=== PATIENT | female | born 1935 | race Caucasian/White ===

== ENCOUNTER 2018-08-20 16:44 | Inpatient (IN) | payer MEDICARE, MEDICAID ==
[~2018-08-20] VITALS: Ht 165.1 cm; Wt 47.9 kg
[2018-08-20] MEDS ORDERED: FELO25ER PO (17:17)
[2018-08-20] MEDS ORDERED: METO50 PO (17:17)
[2018-08-20] MEDS ORDERED: FOSI20TA98 PO (17:17)
[2018-08-20] MEDS ORDERED: APIX2.5T PO (17:17)
[2018-08-20 18:26] LABS: BASOPHILS % (AUTO) 0.6 % (0.0-2.0); EOSINOPHILS % (AUTO) 0.3 % (1.0-6.0); HEMATOCRIT 40.9 % (36-46); HEMOGLOBIN 13.7 g/dL (12.0-16.0); LYMPHOCYTES % (AUTO) 24.9 % (22.0-44.0); MEAN CORPUSCULAR HEMOGLOBIN 29.1 pg (26.0-34.0); MEAN CORPUSCULAR HGB CONC 33.5 G/dL (31.0-37.0); MEAN CORPUSCULAR VOLUME 87 fL (80-100); MONOCYTES # (AUTO) 0.6 K/uL (0.1-1.0); MONOCYTES % (AUTO) 7.6 % (2.0-9.0); NEUTROPHILS # (AUTO) 5.4 K/uL (1.8-7.7); NEUTROPHILS % (AUTO) 66.6 % (40.0-70.0); PLATELET COUNT (AUTO) 269 K/uL (150-450); RED BLOOD CELL COUNT(AUTO) 4.72 MIL/uL (4.00-5.20); RED CELL DISTRIBUTION WIDTH 16.4 % (11.5-14.5)
[2018-08-20 18:37] LABS: ANION GAP 8 mmol/L (8-16); CALCIUM, TOTAL 9.5 mg/dL (8.8-10.5); CARBON DIOXIDE 27 mmol/L (22-29); CHLORIDE 101 mmol/L (98-107); CREATININE 1.12 mg/dL (0.60-1.30); GLOMERULAR FILTR. RATE CALC 46 mL/min (>60); GLUCOSE,RANDOM 191 mg/dL (70-110); SODIUM SERUM 136 mmol/L (136-145); UREA NITROGEN, BLOOD 22 mg/dL (7-18)
[2018-08-20 18:43] LABS: ALANINE AMINOTRANSFERASE 22 U/L (12-78); ALBUMIN 3.9 g/dL (3.4-5.0); ALKALINE PHOSPHATASE 282 U/L (46-116); ASPARTATE AMINOTRANSFERASE 26 U/L (15-37); BILIRUBIN,TOTAL 0.5 mg/dL (0.1-1.0); TOTAL PROTEIN, SERUM 6.9 g/dL (6.4-8.2)
[2018-08-20 22:44] LABS: APPEARANCE,URINE CLOUDY (CLEAR); BILIRUBIN,URINE NEGATIVE (NEGATIVE); GLUCOSE, URINE (UA) NEGATIVE (NEGATIVE); KETONES,URINE NEGATIVE (NEGATIVE); LEUKOCYTE ESTERASE ,URINE SMALL (NEGATIVE); NITRATE,URINE NEGATIVE (NEGATIVE); OCCULT BLOOD,URINE NEGATIVE (NEGATIVE); PH,URINE 5.5 (5.0-8.0); PROTEIN,URINE NEGATIVE (NEGATIVE); UROBILINOGEN,URINE 0.2 mg/dL (<=1.0)
[2018-08-20 22:50] LABS: AMPHET/METH SCREEN,URINE NEGATIVE (NEGATIVE); BARBITURATE SCREEN, URINE NEGATIVE (NEGATIVE); BENZODIAZEPINES SCREEN,URINE NEGATIVE (NEGATIVE); CANNABINOID SCREEN,URINE NEGATIVE (NEGATIVE); COCAINE SCREEN,URINE NEGATIVE (NEGATIVE); METHADONE SCREEN, URINE NEGATIVE (NEGATIVE); OPIATE SCREEN,URINE NEGATIVE (NEGATIVE)
[2018-08-20 22:52] LABS: PHENCYCLIDINE SCREEN,URINE NEGATIVE (NEGATIVE)
[2018-08-20 22:53] LABS: RBC,URINE None Seen /HPF (0-2)
[2018-08-20 22:54] LABS: BACTERIA,URINE Rare /HPF (None Seen); SQUAMOUS EPITHELIAL CELL,UR Moderate /LPF (None Seen)
[2018-08-20] MEDS ORDERED: HALOPERIDOL 5 MG TABLET PO PRN (23:00)
[2018-08-21 01:13] VITALS: BP 183/86
[2018-08-21] MEDS: ZOLPIDEM TARTRATE 10 MG TABLET PO PRN ×2 (01:15→21:11)
[2018-08-21 01:45] VITALS: BP 152/72
[2018-08-21] MEDS ORDERED: PNEUMOCOCCAL VACCINE POLYVALENT 0.5 ML VIAL [PPSV23] IM ONE (03:30)
[2018-08-21 08:18] VITALS: BP 142/83
[2018-08-21 08:59] LABS: HEMOGLOBIN A1C 6.2 % (4.5-6.2)
[2018-08-21] MEDS ORDERED: METOPROLOL TARTRATE 25 MG TABLET PO SCH (09:00)
[2018-08-21 09:21] LABS: CHOL/HDL RATIO 3.7 (3.9-5.7); FREE T4 (FREE THYROXINE) 1.31 ng/dL (0.76-1.46); THYROID STIMULATING HORMONE 0.29 uIU/mL (0.36-3.74)
[2018-08-21] MEDS: METOPROLOL TARTRATE 50 MG TABLET PO SCH (16:11)
[2018-08-21] MEDS: APIXABAN 2.5 MG TABLET PO SCH (16:11)
[2018-08-21] MEDS: RisperiDONE 0.5 MG TABLET PO SCH (16:12)
[2018-08-21 16:13] VITALS: BP 153/84
[2018-08-21] MEDS ORDERED: FELODIPINE 5 MG ER TABLET PO SCH (17:00)
[2018-08-21] MEDS ORDERED: APIXABAN 2.5 MG TABLET PO SCH (17:00)
[2018-08-21] MEDS ORDERED: FOSINOPRIL SODIUM 20 MG TABLET PO SCH (17:00)
[2018-08-22] VITALS (9 sets, daily range): BP systolic 135–192; BP diastolic 69–98
[2018-08-22] MEDS: APIXABAN 2.5 MG TABLET PO SCH ×2 (08:29→16:06)
[2018-08-22] MEDS: FELODIPINE 5 MG ER TABLET PO SCH (08:29)
[2018-08-22] MEDS: RisperiDONE 0.5 MG TABLET PO SCH ×2 (08:30→16:06)
[2018-08-22] MEDS: FOSINOPRIL SODIUM 20 MG TABLET PO SCH (08:30)
[2018-08-22] MEDS: METOPROLOL TARTRATE 50 MG TABLET PO SCH ×2 (08:30→16:06)
[2018-08-22 09:43] LABS: MAGNESIUM 1.8 mg/dL (1.80-2.40); PHOSPHORUS 3.2 mg/dL (2.5-4.9)
[2018-08-22] MEDS: CITALOPRAM HYDROBROMIDE 10 MG TABLET PO SCH (12:55)
[2018-08-22] MEDS: CloNIDine HCL 0.1 MG TABLET PO PRN (19:57)
[2018-08-22] MEDS: ZOLPIDEM TARTRATE 10 MG TABLET PO PRN (20:48)
[2018-08-23 02:24] VITALS: BP 150/87
[2018-08-23 08:00] VITALS: BP 135/79
[2018-08-23] MEDS: CITALOPRAM HYDROBROMIDE 10 MG TABLET PO SCH (09:13)
[2018-08-23] MEDS: RisperiDONE 0.5 MG TABLET PO SCH ×2 (09:13→16:47)
[2018-08-23] MEDS: METOPROLOL TARTRATE 50 MG TABLET PO SCH ×2 (09:14→16:47)
[2018-08-23] MEDS: APIXABAN 2.5 MG TABLET PO SCH ×2 (09:14→16:47)
[2018-08-23] MEDS: FELODIPINE 5 MG ER TABLET PO SCH (09:14)
[2018-08-23] MEDS: FOSINOPRIL SODIUM 20 MG TABLET PO SCH (09:14)
[2018-08-23 16:06] VITALS: BP 120/69
[2018-08-23] MEDS: MIRTAZAPINE 15 MG TABLET PO SCH (20:39)
[2018-08-24] MEDS: CloNIDine HCL 0.1 MG TABLET PO PRN (06:04)
[2018-08-24 06:13] VITALS: BP 198/83
[2018-08-24 07:04] VITALS: BP 181/81
[2018-08-24] MEDS: RisperiDONE 0.5 MG TABLET PO SCH ×2 (08:35→16:47)
[2018-08-24] MEDS: FELODIPINE 5 MG ER TABLET PO SCH ×2 (08:35→16:47)
[2018-08-24] MEDS: APIXABAN 2.5 MG TABLET PO SCH ×2 (08:35→16:47)
[2018-08-24] MEDS: FOSINOPRIL SODIUM 20 MG TABLET PO SCH (08:35)
[2018-08-24] MEDS: METOPROLOL TARTRATE 50 MG TABLET PO SCH ×2 (08:35→16:47)
[2018-08-24] MEDS: CITALOPRAM HYDROBROMIDE 10 MG TABLET PO SCH (08:35)
[2018-08-24 08:36] VITALS: BP 141/61
[2018-08-24] MEDS: MULTIVITAMINS WITH MINERALS, THERAPEUTIC TABLET PO SCH (09:19)
[2018-08-24] MEDS ORDERED: HydrALAZINE HCL 25 MG TABLET PO PRN (13:00)
[2018-08-24 13:06] VITALS: BP 107/66
[2018-08-24 16:28] VITALS: BP 148/68
[2018-08-24 19:00] VITALS: BP 113/61
[2018-08-24] MEDS: MIRTAZAPINE 15 MG TABLET PO SCH (20:35)
[2018-08-25 05:35] VITALS: BP 174/98
[2018-08-25] MEDS: CloNIDine HCL 0.1 MG TABLET PO PRN (05:35)
[2018-08-25 06:35] VITALS: BP 153/78
[2018-08-25 08:00] VITALS: BP_SYST 113; BP_SYST 127; BP_DIAS 60; BP_DIAS 71
[2018-08-25] MEDS: FOSINOPRIL SODIUM 20 MG TABLET PO SCH (08:05)
[2018-08-25] MEDS: METOPROLOL TARTRATE 50 MG TABLET PO SCH ×2 (08:05→16:21)
[2018-08-25] MEDS: MULTIVITAMINS WITH MINERALS, THERAPEUTIC TABLET PO SCH (08:05)
[2018-08-25] MEDS: FELODIPINE 5 MG ER TABLET PO SCH ×2 (08:05→16:21)
[2018-08-25] MEDS: CITALOPRAM HYDROBROMIDE 10 MG TABLET PO SCH (08:05)
[2018-08-25] MEDS: RisperiDONE 0.5 MG TABLET PO SCH ×2 (08:05→16:21)
[2018-08-25] MEDS: APIXABAN 2.5 MG TABLET PO SCH ×2 (08:06→16:21)
[2018-08-25 16:06] VITALS: BP 139/88
[2018-08-25] MEDS: MIRTAZAPINE 15 MG TABLET PO SCH (20:20)
[2018-08-26 01:02] VITALS: BP 151/76
[2018-08-26 06:43] VITALS: BP 198/101
[2018-08-26] MEDS: CloNIDine HCL 0.1 MG TABLET PO PRN (06:46)
[2018-08-26 07:20] VITALS: BP 138/76
[2018-08-26] MEDS: FOSINOPRIL SODIUM 20 MG TABLET PO SCH (08:45)
[2018-08-26] MEDS: APIXABAN 2.5 MG TABLET PO SCH ×2 (08:45→16:32)
[2018-08-26] MEDS: RisperiDONE 0.5 MG TABLET PO SCH ×2 (08:45→16:31)
[2018-08-26] MEDS: MULTIVITAMINS WITH MINERALS, THERAPEUTIC TABLET PO SCH (08:45)
[2018-08-26] MEDS: FELODIPINE 5 MG ER TABLET PO SCH ×2 (08:45→16:31)
[2018-08-26] MEDS: CITALOPRAM HYDROBROMIDE 10 MG TABLET PO SCH (08:45)
[2018-08-26] MEDS: METOPROLOL TARTRATE 50 MG TABLET PO SCH ×2 (08:45→16:31)
[2018-08-26 14:01] VITALS: BP 138/57
[2018-08-26 16:05] VITALS: BP 146/65
[2018-08-26] MEDS: MIRTAZAPINE 15 MG TABLET PO SCH (20:31)
[2018-08-26] MEDS: ZOLPIDEM TARTRATE 10 MG TABLET PO PRN (22:42)
[2018-08-27 06:35] VITALS: BP 157/96
[2018-08-27] MEDS: CloNIDine HCL 0.1 MG TABLET PO PRN (06:57)
[2018-08-27 07:57] VITALS: BP 129/82
[2018-08-27 08:33] VITALS: BP 129/82
[2018-08-27] MEDS: CITALOPRAM HYDROBROMIDE 20 MG TABLET PO SCH (08:46)
[2018-08-27] MEDS: MULTIVITAMINS WITH MINERALS, THERAPEUTIC TABLET PO SCH (08:46)
[2018-08-27] MEDS: APIXABAN 2.5 MG TABLET PO SCH ×2 (08:46→16:43)
[2018-08-27] MEDS: METOPROLOL TARTRATE 50 MG TABLET PO SCH ×2 (08:46→16:43)
[2018-08-27] MEDS: FOSINOPRIL SODIUM 20 MG TABLET PO SCH (08:47)
[2018-08-27] MEDS: RisperiDONE 0.5 MG TABLET PO SCH ×2 (08:47→16:43)
[2018-08-27] MEDS: FELODIPINE 5 MG ER TABLET PO SCH ×2 (08:47→16:43)
[2018-08-27 16:24] VITALS: BP 154/72
[2018-08-27] MEDS: MIRTAZAPINE 15 MG TABLET PO SCH (20:14)
[2018-08-27] MEDS: ZOLPIDEM TARTRATE 10 MG TABLET PO PRN (22:24)
[2018-08-28 06:21] VITALS: BP 159/87
[2018-08-28] MEDS: LORazepam 1 MG TABLET PO PRN ×2 (06:46→10:20)
[2018-08-28] MEDS: METOPROLOL TARTRATE 50 MG TABLET PO SCH ×2 (08:25→16:11)
[2018-08-28] MEDS: MULTIVITAMINS WITH MINERALS, THERAPEUTIC TABLET PO SCH (08:25)
[2018-08-28] MEDS: CITALOPRAM HYDROBROMIDE 20 MG TABLET PO SCH (08:25)
[2018-08-28 08:26] VITALS: BP 149/65
[2018-08-28] MEDS: APIXABAN 2.5 MG TABLET PO SCH ×2 (08:26→16:11)
[2018-08-28] MEDS: FOSINOPRIL SODIUM 20 MG TABLET PO SCH (08:26)
[2018-08-28] MEDS: RisperiDONE 0.5 MG TABLET PO SCH ×2 (08:26→16:12)
[2018-08-28] MEDS: FELODIPINE 5 MG ER TABLET PO SCH ×2 (08:26→16:11)
[2018-08-28 10:15] VITALS: BP 168/71
[2018-08-28 10:50] VITALS: BP 115/72
[2018-08-28 16:05] VITALS: BP 123/66
[2018-08-28] MEDS: MIRTAZAPINE 15 MG TABLET PO SCH (20:07)
[2018-08-29 01:06] VITALS: BP 118/70
[2018-08-29 06:10] VITALS: BP 174/98
[2018-08-29] MEDS: CloNIDine HCL 0.1 MG TABLET PO PRN (06:15)
[2018-08-29 07:04] VITALS: BP 152/81
[2018-08-29 08:31] VITALS: BP 112/62
[2018-08-29] MEDS: FELODIPINE 5 MG ER TABLET PO SCH ×2 (08:34→16:14)
[2018-08-29] MEDS: MULTIVITAMINS WITH MINERALS, THERAPEUTIC TABLET PO SCH (08:34)
[2018-08-29] MEDS: RisperiDONE 0.5 MG TABLET PO SCH ×2 (08:34→16:14)
[2018-08-29] MEDS: CITALOPRAM HYDROBROMIDE 20 MG TABLET PO SCH (08:34)
[2018-08-29] MEDS: FOSINOPRIL SODIUM 20 MG TABLET PO SCH (08:34)
[2018-08-29] MEDS: METOPROLOL TARTRATE 50 MG TABLET PO SCH ×2 (08:34→16:14)
[2018-08-29] MEDS: APIXABAN 2.5 MG TABLET PO SCH ×2 (08:35→16:14)
[2018-08-29 16:22] VITALS: BP 125/81
[2018-08-29] MEDS: MIRTAZAPINE 15 MG TABLET PO SCH (20:37)
[2018-08-30 05:40] VITALS: BP 175/85
[2018-08-30] MEDS: CloNIDine HCL 0.1 MG TABLET PO PRN (05:44)
[2018-08-30 07:01] VITALS: BP 119/66
[2018-08-30 08:23] VITALS: BP 121/64
[2018-08-30] MEDS: FELODIPINE 5 MG ER TABLET PO SCH ×2 (09:01→16:09)
[2018-08-30] MEDS: APIXABAN 2.5 MG TABLET PO SCH ×2 (09:01→16:09)
[2018-08-30] MEDS: RisperiDONE 0.5 MG TABLET PO SCH ×2 (09:01→16:09)
[2018-08-30] MEDS: FOSINOPRIL SODIUM 20 MG TABLET PO SCH (09:01)
[2018-08-30] MEDS: METOPROLOL TARTRATE 50 MG TABLET PO SCH ×2 (09:01→16:09)
[2018-08-30] MEDS: MULTIVITAMINS WITH MINERALS, THERAPEUTIC TABLET PO SCH (09:01)
[2018-08-30] MEDS: CITALOPRAM HYDROBROMIDE 20 MG TABLET PO SCH (09:01)
[2018-08-30 16:03] VITALS: BP 122/67
[2018-08-30] MEDS: MIRTAZAPINE 15 MG TABLET PO SCH (20:02)
[2018-08-31 00:30] VITALS: BP 160/87
[2018-08-31] MEDS: CloNIDine HCL 0.1 MG TABLET PO PRN (00:31)
[2018-08-31 01:30] VITALS: BP 140/66
[2018-08-31 08:05] VITALS: BP 124/67
[2018-08-31] MEDS: APIXABAN 2.5 MG TABLET PO SCH ×2 (09:27→16:50)
[2018-08-31] MEDS: MULTIVITAMINS WITH MINERALS, THERAPEUTIC TABLET PO SCH (09:27)
[2018-08-31] MEDS: CITALOPRAM HYDROBROMIDE 20 MG TABLET PO SCH (09:27)
[2018-08-31] MEDS: FELODIPINE 5 MG ER TABLET PO SCH ×2 (09:27→16:50)
[2018-08-31] MEDS: METOPROLOL TARTRATE 50 MG TABLET PO SCH ×2 (09:28→16:50)
[2018-08-31] MEDS: FOSINOPRIL SODIUM 20 MG TABLET PO SCH (09:28)
[2018-08-31] MEDS: RisperiDONE 0.5 MG TABLET PO SCH ×2 (09:28→16:56)
[2018-08-31 16:07] VITALS: BP 123/63
[2018-08-31] MEDS: MIRTAZAPINE 15 MG TABLET PO SCH (20:09)
[2018-08-31] MEDS: ZOLPIDEM TARTRATE 10 MG TABLET PO PRN (20:50)
[2018-09-01 06:03] VITALS: BP 104/60
[2018-09-01 08:12] VITALS: BP 156/82
[2018-09-01] MEDS: MULTIVITAMINS WITH MINERALS, THERAPEUTIC TABLET PO SCH (08:25)
[2018-09-01] MEDS: CITALOPRAM HYDROBROMIDE 20 MG TABLET PO SCH (08:25)
[2018-09-01] MEDS: METOPROLOL TARTRATE 50 MG TABLET PO SCH (08:26)
[2018-09-01] MEDS: FELODIPINE 5 MG ER TABLET PO SCH (08:26)
[2018-09-01] MEDS: APIXABAN 2.5 MG TABLET PO SCH (08:26)
[2018-09-01] MEDS: RisperiDONE 0.5 MG TABLET PO SCH (08:26)
[2018-09-01] MEDS: FOSINOPRIL SODIUM 20 MG TABLET PO SCH (08:26)
[2018-09-01 09:55] VITALS: BP 125/64
[2018-09-01] MEDS ORDERED: MIRT15 PO (10:52)
[2018-09-01] MEDS ORDERED: CITA-106 PO (10:52)
[2018-09-01] MEDS ORDERED: RISP.5 PO (10:52)
== END 2018-09-01 16:40 | disposition home or self-care (01) | DRG 885 ==
LOC: EMS 16:47 → B2X 22:30
PROVIDERS: ADMIT Psychiatry & Neurology Psychiatry; ATTEND Psychiatry & Neurology Psychiatry
PROC: 3E0234Z Introduction of Serum, Toxoid and Vaccine into Muscle, Percutaneous Approach (ICD-10-PCS; principal; 2018-08-21)
DX: F33.2 Major depressive disorder, recurrent severe without psychotic features (principal); R45.851 Suicidal ideations; Z90.11 Acquired absence of right breast and nipple; I48.91 Unspecified atrial fibrillation; I10 Essential (primary) hypertension; Z23 Encounter for immunization; F41.0 Panic disorder [episodic paroxysmal anxiety]; Z79.899 Other long term (current) drug therapy; Z90.710 Acquired absence of both cervix and uterus; G89.29 Other chronic pain; M54.5 Low back pain; R73.9 Hyperglycemia, unspecified
CPT/HCPCS: 83036; 83735; 84100; 84439; 84443; 87086; 90732; 93005; G0480